=== PATIENT | female | born 1945 | race Caucasian/White ===

== ENCOUNTER 2018-02-14 14:12 | Emergency (ER) | payer MEDICARE, BC ==
[~2018-02-14] VITALS: Ht 170.2 cm; Wt 54.5 kg
[2018-02-14 14:13] VITALS: TEMP 99.5
[2018-02-14] MEDS ORDERED: CEPHALEXIN500 M1 PO (16:14)
[2018-02-14 17:08] VITALS: BP 139/88; PULSE 95
== END 2018-02-14 17:10 | disposition home or self-care (01) ==
LOC: COL.ER 14:12
DX: S01.81XA Laceration without foreign body of other part of head, initial encounter (principal); S40.211A Abrasion of right shoulder, initial encounter; S60.811A Abrasion of right wrist, initial encounter; Z85.07 Personal history of malignant neoplasm of pancreas; W01.0XXA Fall on same level from slipping, tripping and stumbling without subsequent striking against object, initial encounter; Y92.410 Unspecified street and highway as the place of occurrence of the external cause

== ENCOUNTER → 2018-03-01 | Outpatient (CLI) | payer MEDICARE, BC ==
[~2018-03-01] VITALS: Ht 170.2 cm; Wt 60.0 kg
[~2018-03-01] MED LIST: CEPHALEXIN500 M1 PO; DURAMORPH PO; FENTANYL 50MCG TD; OXYCONTIN15 MG PO; PHENERGAN 25 TA25 MG PO
[2018-03-01 12:15] VITALS: BP 162/94; PULSE 112
[2018-03-01 13:40] VITALS: BP 155/99; PULSE 109
== END ==
LOC: COL.RAD 11:35
DX: C25.9 Malignant neoplasm of pancreas, unspecified (principal); R18.8 Other ascites